=== PATIENT | male | born 1985 | race Caucasian/White ===

== ENCOUNTER 2018-04-24 23:56 | Emergency (ER) | payer OTHER ==
[~2018-04-24] VITALS: Ht 172.7 cm; Wt 63.5 kg
[2018-04-25] MEDS ORDERED: LORAZEPAM 2 MG/1 ML VIAL ONE (00:43)
[2018-04-25] MEDS: LORAZEPAM 2 MG/1 ML VIAL IM ONE (00:59)
--- NOTE | 2018-04-25 01:19 | NUR ---
Bladder scan done = 758 ml
[2018-04-25 01:23] LABS: *AMPHETAMINE, URINE NEGATIVE (NEGATIVE); *BARBITURATE, URINE NEGATIVE (NEGATIVE); *CANNABINOID, URINE POSITIVE (NEGATIVE); *COCCAINE, URINE NEGATIVE (NEGATIVE); *OPIATE, URINE POSITIVE (NEGATIVE); *PHENCYCLIDINE SCREEN,URINE NEGATIVE (NEGATIVE)
[2018-04-25 01:28] LABS: *BILIRUBIN,URIN NEGATIVE (NEGATIVE); *BLOOD, URINE NEGATIVE (NEGATIVE); *CLARITY,URINE CLEAR (CLEAR); *COLOR,URINE YELLOW (YELLOW); *KETONES,URINE NEGATIVE (NEGATIVE); *PROTEIN,URINE NEGATIVE (NEGATIVE); *UROBILINOGEN,URINE 0.2 E.U./dl (NORMAL); LEUKOCYTE ESTERASE ,URINE NEGATIVE (NEGATIVE); NITRITE, URINE NEGATIVE (NEGATIVE); PH,URINE 5.5 (5.0-8.0); UGLUCOSE NEGATIVE (NEGATIVE)
[2018-04-25 01:31] LABS: BACTERIA,URINE NONE SEEN /HPF (NONE SEEN); RBC,URINE NONE SEEN /HPF (0-3); SQUAMOUS EPITHELIAL CELL,UR FEW /HPF (NONE SEEN); WBC,URINE 0-3 /HPF (0-3)
[2018-04-25 01:34] LABS: BASOPHILS % (AUTO) 0.4 % (0.0-2.0); EOSINOPHILS # (AUTO) 0.1 K/uL (0.0-0.7); EOSINOPHILS % (AUTO) 1.8 % (0.0-7.0); HEMATOCRIT 43.1 % (36.7-47.1); HEMOGLOBIN 14.8 g/dL (12.5-16.3); LYMPHOCYTES # (AUTO) 1.9 K/uL (20.0-40.0); LYMPHOCYTES % (AUTO) 34.3 % (20.5-51.5); MEAN CORPUSCULAR HEMOGLOBIN 32.3 uug (23.8-33.4); MEAN CORPUSCULAR HGB CONC 34 g/dL (32.5-36.3); MEAN CORPUSCULAR VOLUME 93.9 fL (73.0-96.2); MONOCYTES # (AUTO) 0.4 K/uL (2.0-10.0); MONOCYTES % (AUTO) 8.2 % (0.0-11.0); NEUTROPHILS % (AUTO) 55.3 % (38.5-71.5); PLATELET COUNT (AUTO) 265 K/uL (152-348); RED BLOOD CELL COUNT(AUTO) 4.59 MIL/uL (4.06-5.63); WHITE BLOOD COUNT (AUTO) 5.4 K/uL (3.6-10.2)
[2018-04-25] MEDS ORDERED: LIDOCAINE 2% (UROJET) 10 ML JELLY MM ONE (01:34)
[2018-04-25] MEDS: LIDOCAINE 2% (UROJET) 10 ML JELLY MM ONE (01:43)
[2018-04-25 01:47] LABS: CARBON DIOXIDE 29 mmol/L (21-32); CHLORIDE 104 mmol/L (98-107); CREATININE 0.7 mg/dL (0.6-1.3); GLUCOSE 83 mg/dL (74-106); POTASSIUM 3.9 mmol/L (3.5-5.1); UREA NITROGEN, BLOOD 4 mg/dL (7-18)
--- NOTE | 2018-04-25 01:48 | NUR ---
Inserted indwelling varela catheter. Emptied 1100ml urine.
[2018-04-25 01:53] LABS: ALANINE AMINOTRANSFERASE 44 U/L (16-63); ALKALINE PHOSPHATASE 112 U/L (50-136); ASPARTATE AMINOTRANSFERASE 34 U/L (15-37); BILIRUBIN,DIRECT 0.1 mg/dL (0.0-0.2); BILIRUBIN,TOTAL 0.3 mg/dL (0.2-1.0)
[2018-04-25 01:58] LABS: ETHANOL 172 MG/DL (0-0)
--- NOTE | 2018-04-25 06:30 | NUR ---
Lyman catheter removed.
[2018-04-25 06:40] VITALS: BP 112/60
--- NOTE | 2018-04-25 06:40 | NUR ---
Patient discharged to home in stable conditon. Written and verbal after care instructions given. Patient verbalizes understanding of instructions.
== END 2018-04-25 06:42 | disposition home or self-care (01) ==
LOC: ER 04-25
DX: F10.129 Alcohol abuse with intoxication, unspecified (principal); F19.10 Other psychoactive substance abuse, uncomplicated; R33.9 Retention of urine, unspecified; F12.10 Cannabis abuse, uncomplicated; Z88.2 Allergy status to sulfonamides; Z88.8 Allergy status to other drugs, medicaments and biological substances
CPT/HCPCS: 36415; 80307; 85025; A4663; G0480; J2060

== ENCOUNTER 2018-04-25 14:46 | Emergency (ER) | payer OTHER ==
[~2018-04-25] VITALS: Ht 180.3 cm; Wt 81.6 kg
--- NOTE | 2018-04-25 14:50 | NUR ---
PATIENT WAS BROUGHT TO ER BY [facility]. PER [facility], PATIENT FELL OFF HIS WHEELCHAIR. HE IS AWAKE AND ALERT. DENIES PAIN OR DIZZINESS. HE STATES "I AM FINE, I DONT WANT TO BE HERE".
--- NOTE | 2018-04-25 15:05 | NUR ---
PATIENT WAS DISCHARGED BY DR GEIGER. PATIENT IS WALKING WITH STEADY GAIT. WAS ESCORED TO [facility] BY [facility],
== END 2018-04-25 15:08 | disposition home or self-care (01) ==
LOC: ER 14:47
DX: F10.129 Alcohol abuse with intoxication, unspecified (principal); F12.10 Cannabis abuse, uncomplicated; Z88.2 Allergy status to sulfonamides; Z88.8 Allergy status to other drugs, medicaments and biological substances; W01.198A Fall on same level from slipping, tripping and stumbling with subsequent striking against other object, initial encounter; Y93.89 Activity, other specified; Y92.89 Other specified places as the place of occurrence of the external cause; Y99.8 Other external cause status
CPT/HCPCS: A4663